=== PATIENT | female | born 1980 | race Two or more races ===

== ENCOUNTER 2017-10-23 10:25 | Emergency (ER) | payer OTHER ==
[~2017-10-23] VITALS: Ht 152.4 cm; Wt 47.2 kg
[2017-10-23] MEDS ORDERED: KETO10TA2 PO (14:03)
== END 2017-10-23 14:08 | disposition home or self-care (01) ==
LOC: ER 10:25
DX: S01.81XA Laceration without foreign body of other part of head, initial encounter (principal); S00.83XA Contusion of other part of head, initial encounter; W22.8XXA Striking against or struck by other objects, initial encounter; Y93.89 Activity, other specified; Y92.098 Other place in other non-institutional residence as the place of occurrence of the external cause; Y99.8 Other external cause status

== ENCOUNTER 2020-02-18 15:36 | Outpatient (CLI) | payer OTHER ==
[~2020-02-18 15:36] MED LIST: KETO10TA2 PO
== END 2020-02-18 16:00 | disposition home or self-care (01) ==
LOC: OFIC 805 15:36
PROVIDERS: ATTEND Otolaryngology
DX: J03.80 Acute tonsillitis due to other specified organisms (principal); J02.8 Acute pharyngitis due to other specified organisms; R22.1 Localized swelling, mass and lump, neck

== ENCOUNTER 2020-02-23 08:31 | Outpatient (CLI) | payer OTHER | END 2020-02-23 08:42 | disposition home or self-care (01) | LOC: SONOGRAMA 08:31 → MAMO-SONO 02-24 07:45 | PROVIDERS: ATTEND Otolaryngology | DX: R22.1 Localized swelling, mass and lump, neck (principal) ==

== ENCOUNTER 2020-03-08 13:18 | Outpatient (CLI) | payer OTHER | END 2020-03-08 18:26 | disposition home or self-care (01) | LOC: OFIC 805 13:18 | PROVIDERS: ATTEND Otolaryngology | DX: R22.1 Localized swelling, mass and lump, neck (principal) ==

== ENCOUNTER 2020-03-10 08:26 | Outpatient (CLI) | payer OTHER | END 2020-03-10 08:32 | disposition home or self-care (01) | LOC: SONOGRAMA 08:26 | PROVIDERS: ATTEND Pathology Anatomic Pathology & Clinical Pathology | DX: C85.90 Non-Hodgkin lymphoma, unspecified, unspecified site (principal) ==

== ENCOUNTER → 2020-04-26 | Outpatient (CLI) | payer OTHER | END | disposition home or self-care (01) | LOC: OFIC 805 15:30 | PROVIDERS: ATTEND Otolaryngology | DX: R22.1 Localized swelling, mass and lump, neck (principal); J02.8 Acute pharyngitis due to other specified organisms ==

== ENCOUNTER → 2024-08-27 | Emergency (ER) | payer OTHER ==
[~2024-08-27] VITALS: Ht 152.4 cm; Wt 54.4 kg
[~2024-08-27] MED LIST changes: +FAMOTIDINE/PF 20 MG/2 ML VIAL ONE; +FAMOtidine 10 MG/ML (4ML VIAL) IV PUSH ONE; +KETOROLAC TROMETHAMINE 60 MG VIAL IM ONE
[2024-08-27 10:32] LABS: HEMATOCRIT 41.4 % (36.0-45.00); HEMOGLOBIN 13.8 g/dL (12.0-15.00); MEAN CELL VOLUME 91.1 fL (80.00-100.00); MEAN CORPUSCULAR HEMOGLOBIN 30.4 pg (27.00-32.0); MEAN CORPUSCULAR HGB CONC 33.4 g/dl (32.0-36.0); PLATELET COUNT 252 K/uL (150-450); RED BLOOD COUNT 4.55 M/uL (4.00-6.00); RED CELL DISTRIBUTION WIDTH 13.2 % (11.5-14.5)
== END | disposition home or self-care (01) ==
LOC: ER 08:01
PROVIDERS: General Practice
DX: M94.0 Chondrocostal junction syndrome [Tietze] (principal)